=== PATIENT | female | born 1980 | race Caucasian/White ===

== ENCOUNTER 2021-11-21 07:35 | Day surgery (SDC) | payer OTHER ==
[~2021-11-21] VITALS: Ht 160 cm; Wt 70.2 kg
[2021-11-21] VITALS (216 sets, daily range): BP systolic 91–173; BP diastolic 52–100
--- NOTE | 2021-11-21 07:30 | NUR ---
PATIENT AMBULATORY TO ROOM. CONSENTS OBTAINED. VITAL SIGNS OBTAINED. ADMISSION ASSESSMENT COMPLETED AT THIS TIME. IV ESTABLISHED. ORIENTED TO ROOM AND UNIT. CALL LIGHT IN REACH. WILL CONTINUE TO MONITOR.
[2021-11-21 08:19] LABS: HEMATOCRIT 38.3 % (37.0-47.0); HEMOGLOBIN 11.8 g/dl (12.0-16.0); IMMATURE GRANULOCYTES 0.1 % (0.0-5.0); MEAN CELL VOLUME 85.9 fL CALC (80.0-100.0); MEAN CORPUSCULAR HGB 26.5 pG CALC (26.0-32.0); MEAN CORPUSCULAR HGB CONC 30.8 g/dL CAL (32.0-36.0); NEUT# 5.01 thou/uL (2.00-7.15); RED BLOOD COUNT 4.46 mill/uL (4.20-5.60); RED CELL DISTRI WIDTH 15.4 % (11.5-15.5)
[2021-11-21 08:45] LABS: ALBUMIN 4.2 g/dL (3.2-5.0); ALKALINE PHOSPHATASE 70 u/l (38-126); ANION GAP 14 (6-22 (CALC)); BILIRUBIN, TOTAL 0.2 mg/dL (0.0-1.4); BUN 14 mg/dL (7-17); BUN/CREATININE RATIO 23 (12-20 (CALC)); CARBON DIOXIDE 25 mmol/l (22-30); CHLORIDE 105 mmol/l (95-108); CREATININE 0.6 mg/dL (0.5-1.0); GFR > 60 ML/MIN (>=60 (CALC)); GFR FOR AFR.AMER. > 60 ML/MIN (>=60 (CALC)); POTASSIUM 4.4 mmol/l (3.5-5.1); SGOT/AST 25 u/l (14-36); SODIUM 139 mmol/l (137-146); TOTAL PROTEIN 7.3 g/dL (6.3-8.2)
--- NOTE | 2021-11-21 10:00 | NUR ---
DR CARRINGTON AT BEDSIDE AT THIS TIME.
--- NOTE | 2021-11-21 11:00 | NUR ---
Induction Note Patient to [facility] procedure room. Time out performed at 1100. Patient placed on monitors, Easton hugger, bilateral wrist restraints applied for ET tube protection. Versed 5mg given IV push at 1101 Lidocaine 100mg given at 1102 IV push followed by Rocoronium 10mg at 1102 IV push and held for 90 seconds. Propofol bolus of 110mg given at 1103 IV push. Succinylcholine 80mg given IV push at 1104 . Smooth intubation with 7.5 ETT. Positive CO2. Positive Auscultation for air exchange. Patient placed on ventilator for spontaneous ventilation. Placed on Propofol IV drip at 1105. OG inserted. Positive air on auscultation. Positive gastric content. Stomach washed at this time. Naltrexone 75mg given via OG tube with Clonidine 0.3mg given via OG Tube. OG clamped for 45 minutes. Will monitor patient for symptoms of withdrawal and adjust propfol accordingly.
--- NOTE | 2021-11-21 12:05 | NUR ---
OG open note OG open at this time. Gastric content draining into drainage bag. OG to drain for 45 minutes. Propofol will be titrated down based on patient.
--- NOTE | 2021-11-21 12:50 | NUR ---
OG close note Stomach washed at this time. Naltrexone 50 mg with Clonidine 0.2 mg via OG tube. OG will be clamped for 45 minutes.
--- NOTE | 2021-11-21 16:00 | NUR ---
OG close note Stomach washed at this time. Naltrexone 12.5 mg with Clonidine 0.2 mg via OG tube. OG will be clamped for 45 minutes.
--- NOTE | 2021-11-21 17:45 | NUR ---
Extubation note Closing medications given Benadryl 50mg IV push, Decadron 10mg IV push,Magnesium 4 grams IV, Zofran 8mg IV push, Octreotide 100mcg SC. Stomach washed out prior to extubation. Suctioned gastric content. OG removed. Patient extubated. Propofol Discontinued. Wrist restraints removed. Easton hugger Removed. See [facility] Moderate sedate recovery record for further notes and assessment.-
--- NOTE | 2021-11-21 18:02 | NUR ---
[facility] TRANSFERRED TO [facility] VIA BED
--- NOTE | 2021-11-21 18:39 | NUR ---
REPORT RECIEVED. PT ARRIVED TO [facility] ROOM 287 VIA BED IN STABLE CONDITION ACCOMPAINED BY [facility] STAFF. VITALS OBTAINED. VSS. NO SIGNS OF DISTRESS. ALL SAFTEY PRECAUTONS IN PLACE WITH CALL LIGHT IN REACH
--- NOTE | 2021-11-21 18:50 | NUR ---
RECEIVED REPORT FROM ANKITA TATE.
--- NOTE | 2021-11-21 19:20 | NUR ---
PT RESTLESS; PT ASSISTED TO BEDSIDE COMMODE. PT BACK TO BED. IV SITE ON RIGHT JUGULAR FOUND DISLODGED AT THIS TIME; CATETHER IS INTACT. BED ALARM AND SAFETY PRECAUTIONS IN PLACE.
--- NOTE | 2021-11-21 19:40 | NUR ---
PT IS RESTLESS, STILL DROWSY FROM PROCEDURE; A&O X2. EVEN AND UNLABORED RESPIRATIONS; CLEAR LUNG SOUNDS UPON AUSCULTATION. ACTIVE BOWEL SOUNDS X4 QUADRANTS. IV SITE ON LEFT HAND HEALTHY AND PATENT. PT IS AGITATED; PT C/O NAUSEA; ADMINISTERED ATIVAN AND PHENERGAN PER EMAR. BED ALARM AND SAFETY PRECAUTIONS IN PLACE. CALL LIGHT WITHIN REACH.
--- NOTE | 2021-11-22 00:19 | NUR ---
PT SLEEPING. NO DISTRESS OR PAIN NOTED. BED ALARM AND SAFETY PRECAUTIONS IN PLACE WITH CALL LIGHT IN REACH.
[2021-11-22 03:51] VITALS: BP 118/71
--- NOTE | 2021-11-22 04:10 | NUR ---
PT SLIGHTLY AWAKE. ADMINISTERED SCHEDULED MEDICATIONS PER EMAR AT THIS TIME. BED ALARM AND SAFETY PRECAUTIONS IN PLACE. CALL LIGHT WITHIN REACH.
--- NOTE | 2021-11-22 07:49 | NUR ---
REPORT WAS RECEIVED FROM MANNY SONI. STAND BY ASSIST PATIENT TO THE BATHROOM AND PATIENT VOID AND THEN BACK TO BED WITH CALL LIGHT IN REACH. PATIENT DENIES ANY OTHER NEEDS.
--- NOTE | 2021-11-22 08:41 | NUR ---
WASHROOM ATTENDANT IN ROOM TO DRAW LABS.
[2021-11-22 08:53] LABS: HEMATOCRIT 35.4 % (37.0-47.0); HEMOGLOBIN 11.2 g/dl (12.0-16.0); IMMATURE GRANULOCYTES 0.2 % (0.0-5.0); MEAN CELL VOLUME 85.9 fL CALC (80.0-100.0); MEAN CORPUSCULAR HGB 27.2 pG CALC (26.0-32.0); MEAN CORPUSCULAR HGB CONC 31.6 g/dL CAL (32.0-36.0); NEUT# 10.82 thou/uL (2.00-7.15); RED BLOOD COUNT 4.12 mill/uL (4.20-5.60); RED CELL DISTRI WIDTH 15.9 % (11.5-15.5)
[2021-11-22 09:03] LABS: ALBUMIN 3.7 g/dL (3.2-5.0); ALKALINE PHOSPHATASE 61 u/l (38-126); ANION GAP 11 (6-22 (CALC)); BUN 9 mg/dL (7-17); BUN/CREATININE RATIO 18 (12-20 (CALC)); CARBON DIOXIDE 24 mmol/l (22-30); CHLORIDE 107 mmol/l (95-108); CREATININE 0.5 mg/dL (0.5-1.0); GFR > 60 ML/MIN (>=60 (CALC)); GFR FOR AFR.AMER. > 60 ML/MIN (>=60 (CALC)); POTASSIUM 3.7 mmol/l (3.5-5.1); SGOT/AST 32 u/l (14-36); SODIUM 138 mmol/l (137-146); TOTAL PROTEIN 6.6 g/dL (6.3-8.2)
[2021-11-22 09:08] LABS: BILIRUBIN, TOTAL 0.5 mg/dL (0.0-1.4)
--- NOTE | 2021-11-22 09:27 | NUR ---
PATIENT STATED SHE HAS NAUSEA AND IS RESTLESS. TRY TO MEDICATED PATIENT WITH IV ZOFRAN BUT PATIENT STATED IV SITE HURTS. NOTIFIED DR. CARRINGTON AND ORDERS RECEIVED FOR PO ZOFRAN.
--- NOTE | 2021-11-22 09:54 | NUR ---
TRY TO MEDICATED PATIENT WITH PO ZOFRAN BUT PATIENT IS SLEEPING WITH NO DISTRESS NOTED. CALL LIGHT IN REACH.
[2021-11-22 10:04] VITALS: BP 109/70
--- NOTE | 2021-11-22 10:04 | NUR ---
ASSESSMENT DONE. PATIENT IS ALERT AND ORIENT X2 BUT DROWSY. PATIENT DENIES NAUSEA. RESPS EVEN AND UNLABORED. AM MEDICATIONS PROVIDED PER EMAR. PATIENT TOOK SIPS OF WATER AND JUICES. PATIENT DENIES ANY OTHER NEEDS AT THIS TIME. CALL LIGHT IN REACH.
--- NOTE | 2021-11-22 12:05 | NUR ---
PATIENT IS SLEEPING WITH NO DISTRESS NOTED. CALL LIGHT IN REACH.
--- NOTE | 2021-11-22 14:20 | NUR ---
FIRE APPARATUS SPRINKLER INSPECTOR SETUP PATIENT FOR A SHOWER CALL LIGHT IN REACH.
[2021-11-22 15:48] VITALS: BP 113/65
--- NOTE | 2021-11-22 16:35 | NUR ---
PATIENT IS SITTING IN THE RECLINER WITH NO DISTRESS NOTED. CALL LIGHT IN REACH.
--- NOTE | 2021-11-22 16:51 | NUR ---
PATIENT AMBULATING WITH [facility] STAFF TO GO OUTSIDE.
--- NOTE | 2021-11-22 17:20 | NUR ---
PATIENT BACK FROM BEING OUTSIDE WITH THE [facility] STAFF.
--- NOTE | 2021-11-22 17:56 | NUR ---
Discharge instructions given. Patient verbalizes understanding of same. Discharged in stable condition via Ambulatory to Home with [facility] staff. All belongings sent with pt.
== END 2021-11-22 17:30 | disposition home or self-care (01) | DRG 897 ==
LOC: ANR 07:35 → MS2 07:36 → ANR 14:44
PROVIDERS: ATTEND Anesthesiology
DX: F11.20 Opioid dependence, uncomplicated (principal)
CPT/HCPCS: J2060; J2354; J3475